=== PATIENT | female | born 1925 | race Caucasian/White ===

== ENCOUNTER → 2017-05-28 | Day surgery (SDC) | payer MEDICARE, BC ==
[~2017-05-28] MED LIST: Lactated Ringers 1,000 ML IV SCH; Propofol 200 MG/20 ML SDV IV ONE; Sodium Chloride 0.9% 500 ML IV SCH
[2017-05-28 09:41] VITALS: BP 128/58
--- NOTE | 2017-05-28 12:13 | OR ---
DATE OF OPERATION: 05/28/2017 PREOPERATIVE DIAGNOSIS: DYSPHAGIA. POSTOPERATIVE DIAGNOSIS: DYSPHAGIA. SURGEON: Saul Maravilla MD PROCEDURE: EGD WITH BIOPSIES X2, CYRIL. ANESTHESIA: [employer] due to dysphagia and advanced age. COMPLICATIONS: None. SPECIMEN: 1. Antral biopsy x2. 2. CYRIL. FINDINGS: 1. Full-length EGD. 2. Minimal antral gastritis without erosion or ulceration. 3. Hiatal hernia with spontaneous GERD. No esophagitis, stricturing or Pino's changes. RECOMMENDATIONS: Medical followup with the patient's primary provider. INDICATIONS: The patient apparently has been having some ongoing issues with reflux, belching, and pills getting stuck. This is a long-term problem. Dr. Boudreaux sent her for EGD. DESCRIPTION OF PROCEDURE: The patient was prepped and draped, placed in the left lateral decubitus position. A lubricated Olympus gastroscope was inserted over a bit and advanced to cricopharyngeus and easily intubated in the esophagus. Esophageal lining was benign in its entire course. The patient has a hiatal hernia and [id number] in size without any stricturing ulceration or Pino's changes. No rings noted. Spontaneous reflux was visualized. The scope was advanced into the stomach through the pylorus into the second portion of the duodenum. This and the duodenal bulb were unremarkable. The scope was brought back into the stomach and retroflexed. The upper fundus and lower cardia were seen without difficulty. No abnormalities were seen. Upon straightening, the gastric lining of the fundus was benign. There was a very mild amount of inflammation of the [id number] antrum with no erosions or ulcerations suggesting mild and may be chronic gastritis. Two biopsies were taken along with a CYRIL test. Air was suctioned. Scope was removed without complication. ELEUTERIO/AARON /[id number]
== END ==
LOC: CC.SDS 07:52
PROVIDERS: ATTEND Family Medicine
DX: K29.50 Unspecified chronic gastritis without bleeding (principal); K44.9 Diaphragmatic hernia without obstruction or gangrene; K21.9 Gastro-esophageal reflux disease without esophagitis; Z88.1 Allergy status to other antibiotic agents; Z88.8 Allergy status to other drugs, medicaments and biological substances; Z79.01 Long term (current) use of anticoagulants; Z79.899 Other long term (current) drug therapy
CPT/HCPCS: 36415; 43239; 85610; 87081; J2704; J7040; 00740; 88305; 88342